=== PATIENT | female | born 1955 | race African-American/Black ===

== ENCOUNTER 2021-04-09 06:08 | Observation (INO) | payer OTHER ==
--- OUTSIDE RECORDS SUMMARY | 2021-04-09 06:11 | XMS REPORT | Continuity of Care Document ---
:1955 [facility] t Address [address] [place] [address] Care Team Providers Name Role Phone Az PATEL Attending Clinician Doctor Unassigned, Name Attending Clinician Unavailable Angelita PHELAN Attending Clinician Unavailable Jennifer Cui DO Attending Clinician Tito PATEL Attending Clinician Singer HOSKINS Attending Clinician Jason PATEL S Attending Clinician Rere Lang Attending Clinician Danna PHELAN Attending Clinician Tito PATEL Admitting Clinician Problems This patient has no known problems. Allergies, Adverse Reactions, Alerts This patient has no known allergies or adverse reactions. Medications This patient has no known medications. Procedures This patient has no known procedures. Encounters Start End Encounter Admission Attending Care Care Encounter Source Date/Time Date/Time Type Type Clinicians Facility Department ID 2021-03-16 2021-03-[address] [facility] [id number] 09:20:00 12:58:00 Ben Lynne [id number] [place] [id number] [place] [id number] 2021-03-16 2021-03-16 Orders Doctor [facility] [id number] 00:00:00 00:00:00 Only Unassigned, [place] [id number] [place] [facility] [id number] 2020-12-08 2020-12-08 Orders Doctor MAGDI [id number] 00:00:00 00:00:00 Only Unassigned, OWEN [id number] [place] [facility] [id number] [id number] 2020-11-21 2020-11-21 Transition Harvey Goldstein [id number] 00:00:00 00:00:00 of Care Janel Reynaga [id number]7.2.686 [id number] 2020-11-17 2020-11-20 [facility] Sol Cui [id number] 06:25:00 18:14:00 Encounter Latisha Francis Owen [id number]2.686 [id number] 2020-10-30 2020-10-30 Emergency [facility] [id number] 09:00:00 10:42:00 Jean Lynne [id number] [place] [id number] [place] [id number] 2020-09-08 2020-09-08 Emergency [facility] [id number] 13:46:00 15:49:00 Tita Lynne [id number] [place] [id number] [place] [id number] 2020-02-16 2020-02-17 Emergency [facility] [id number] 21:41:52 01:02:00 Tita Lynne [id number] [place] [id number] [place] [id number] 2019-12-04 2019-12-04 Emergency Lan Piña [facility] [id number] 12:46:32 14:59:00 Rere Lynne [id number] [place] [id number] [place] [id number] 2019-11-20 2019-11-20 Transition Harvey Clay [id number] 00:00:00 00:00:00 of Care Chloe Reynaga [id number] [place] 4.2.7.2.686 [id number] Results This patient has no known results.
--- NOTE | 2021-04-09 07:31 | ER ---
Nurse's Notes [facility] Name: Enrique Dallas Age: 65 yrs Sex: Female : 1955 Arrival Date: 04/09/2021 Time: 06:13 Bed 19 Private MD: Diagnosis: Abdominal pain, unspecified;Epigastric abdominal tenderness;Calculus of gallbladder and bile duct with acute and chronic cholecystitis without obstruction Presentation: 04/09 06:31 Chief complaint: Patient states: abdominal pain for 1 week, N/V/D, hx of gallstones, em denies fever. Coronavirus screen: Client denies travel out of the [place] in the last 14 days. Ebola Screen: Patient negative for fever greater than or equal to 101.5 degrees Fahrenheit, and additional compatible Ebola Virus Disease symptoms Patient denies exposure to infectious person. Patient denies travel to an Ebola-affected area in the 21 days before illness onset. No symptoms or risks identified at this time. Initial Sepsis Screen: Does the patient meet any 2 criteria? No. Patient's initial sepsis screen is negative. Does the patient have a suspected source of infection? No. Patient's initial sepsis screen is negative. Risk Assessment: Do you want to hurt yourself or someone else? Patient reports no desire to harm self or others. Onset of symptoms was April 09, 2021. 06:31 Method Of Arrival: Wheelchair em 06:31 Acuity: RICHARD 3 em Historical: - Allergies: 06:33 No Known Allergies; em - PMHx: 06:33 Hypertensive disorder; Diabetes mellitus; Asthma; Anxiety; Depressive disorder; em - PSHx: 06:33 tubal; em - Immunization history:: Adult Immunizations up to date. - Social history:: Smoking status: Patient denies any tobacco usage or history of. Screenin:15 Abuse screen: Denies threats or abuse. Denies injuries from another. Nutritional jl7 screening: No deficits noted. Tuberculosis screening: No symptoms or risk factors identified. Fall Risk IV access (20 points). Total Shafer Fall Scale indicates No Risk (0-24 pts). Assessment: 07:15 General: Appears in no apparent distress. uncomfortable, Behavior is calm, cooperative, jl7 appropriate for age. Pain: Complains of pain in right upper quadrant and left upper quadrant Pain radiates to mid back area Pain currently is 5 out of 10 on a pain scale. Pain began 2-3 days ago. Is continuous. Neuro: Level of Consciousness is awake, alert, obeys commands, Oriented to person, place, time, situation. Cardiovascular: Patient's skin is warm and dry. Respiratory: Airway is patent Respiratory effort is even, unlabored, Respiratory pattern is regular, symmetrical. GI: Abdomen is non-distended, Reports upper abdominal pain. : Denies burning with urination, pain with urination. Derm: Skin is dry, Skin is normal, Skin temperature is warm. Vital Signs: 06:31 BP 131 / 97; Pulse 78; Resp 16; Temp 97.0; Pulse Ox 100% on R/A; Weight 53.52 kg; em Height 4 ft. 11 in. (149.86 cm); Pain 5/10; 08:15 BP 114 / 86; Pulse 64; Resp 15; Pulse Ox 100% ; jl7 06:31 Body Mass Index 23.83 (53.52 kg, 149.86 cm) em ED Course: 06:13 Patient arrived in ED. es 06:33 Triage completed. em 06:33 Arm band placed on. em 07:05 Angeles Adair, TAPAN is Primary Nurse. jl7 07:10 Kevan Chandler MD is Attending Physician. kdr 07:29 Harpreet Coffman MD is Hospitalizing Provider. kdr 07:30 Initial lab(s) drawn, by pr, sent to lab. Urine collected: clean catch specimen, clear. jl7 Inserted saline lock: 22 gauge in right wrist, using aseptic technique. Blood collected. 07:54 Lipase Sent. jl7 07:54 Lipase Sent. jl7 07:54 Liver (Hepatic) Function Sent. jl7 07:54 Liver (Hepatic) Function Sent. jl7 07:54 Basic Metabolic Panel Sent. jl7 07:54 Basic Metabolic Panel Sent. jl7 07:54 CBC with Automated Diff Sent. jl7 07:54 CBC with Automated Diff Sent. jl7 08:15 Patient has correct armband on for positive identification. Placed in gown. Bed in low jl7 position. Call light in reach. Side rails up X 1. Pulse ox on. NIBP on. Warm blanket given. 09:05 No provider procedures requiring assistance completed. Patient admitted, IV remains in jl7 place. intact, No redness/swelling at site. Administered Medications: 08:10 Drug: NS 0.9% 500 ml Route: IV; Rate: bolus; Site: right wrist; 7 09:07 Follow up: IV Status: Infusion continued upon admission 7 08:16 Drug: Zofran (Ondansetron) 4 mg Route: IVP; Site: right wrist; 7 09:07 Follow up: Response: No adverse reaction 7 08:18 Drug: morphine 1 mg Route: IVP; Site: right wrist; 7 08:45 Follow up: Response: No adverse reaction; Pain is decreased [facility] Outcome: 07:29 Decision to Hospitalize by Provider. kdr 09:05 Admitted to OR accompanied by nurse, via wheelchair, with chart, Report called to jenelle Kirkpatrick RN 09:05 Condition: stable 09:05 Discharge instructions given to patient, Instructed on the need for admit, Demonstrated understanding of instructions. 09:07 Patient left the ED. [facility] Signatures: Kevan Chandler MD MD kdr Salyer, Edna es Munoz, Edgar RN RN Angeles Mathews RN RN [facility] Corrections: (The following items were deleted from the chart) 09:07 07:40 NS 0.9% 500 ml IV at bolus in right wrist [place] [id number]
--- NOTE | 2021-04-09 07:31 | EDPHYS ---
Physician Documentation [facility] Name: Enrique Dallas Age: 65 yrs Sex: Female : 1955 Arrival Date: 04/09/2021 Time: 06:13 Bed 19 Private MD: ED Physician Kevan Chandler HPI: 04/09 10:01 This 65 yrs old Black Female presents to ER via Wheelchair with complaints of Abdominal kdr Pain. 10:01 The patient presents with abdominal pain in the epigastric area, in the upper abdomen, kdr in the right upper quadrant. Onset: The symptoms/episode began/occurred last week, at an unknown time. The symptoms do not radiate. Associated signs and symptoms: Pertinent positives: nausea, Pertinent negatives: blood in stools, chest pain, constipation, diarrhea, dysuria, palpitations, shortness of breath, vaginal discharge, vomiting blood. The symptoms are described as achy, crampy, dull, intermittent. Modifying factors: The symptoms are alleviated by nothing, the symptoms are aggravated by spicy food, touching the area. Severity of pain: At its worst the pain was moderate severe just prior to arrival, in the emergency department the pain has improved moderately. The patient has not experienced similar symptoms in the past. The patient has not recently seen a physician. Historical: - Allergies: 06:33 No Known Allergies; em - PMHx: 06:33 Hypertensive disorder; Diabetes mellitus; Asthma; Anxiety; Depressive disorder; em - PSHx: 06:33 tubal; em - Immunization history:: Adult Immunizations up to date. - Social history:: Smoking status: Patient denies any tobacco usage or history of. ROS: 10:01 Constitutional: Negative for fever, chills, and weight loss, Eyes: Negative for injury, kdr pain, redness, and discharge, Neck: Negative for injury, pain, and swelling, Cardiovascular: Negative for chest pain, palpitations, and edema, Respiratory: Negative for shortness of breath, cough, wheezing, and pleuritic chest pain, Back: Negative for injury and pain, : Negative for injury, bleeding, discharge, and swelling, MS/Extremity: Negative for injury and deformity, Skin: Negative for injury, rash, and discoloration, Neuro: Negative for headache, weakness, numbness, tingling, and seizure activity. Psych: Negative for depression, anxiety, suicide ideation, homicidal ideation, and hallucinations, Allergy/Immunology: Negative for hives, rash, and allergies, Endocrine: Negative for neck swelling, polydipsia, polyuria, polyphagia, and marked weight changes, Hematologic/Lymphatic: Negative for swollen nodes, abnormal bleeding, and unusual bruising. 10:01 Abdomen/GI: Positive for abdominal pain, nausea, Negative for constipation, abdominal cramps, abdominal distension, anorexia, dysphagia, hematemesis, black/tarry stool, rectal pain, States she has not eaten since yesterday morning.. Exam: 16:26 Constitutional: This is a well developed, well nourished patient who is awake, alert, kdr and in no acute distress. Head/Face: Normocephalic, atraumatic. Eyes: Pupils equal round and reactive to light, extra-ocular motions intact. Lids and lashes normal. Conjunctiva and sclera are non-icteric and not injected. Cornea within normal limits. Periorbital areas with no swelling, redness, or edema. Neck: Trachea midline, no thyromegaly or masses palpated, and no cervical lymphadenopathy. Supple, full range of motion without nuchal rigidity, or vertebral point tenderness. No Meningismus. Chest/axilla: Normal chest wall appearance and motion. Nontender with no deformity. No lesions are appreciated. Cardiovascular: Regular rate and rhythm with a normal S1 and S2. No gallops, murmurs, or rubs. Normal PMI, no JVD. No pulse deficits. Respiratory: Lungs have equal breath sounds bilaterally, clear to auscultation and percussion. No rales, rhonchi or wheezes noted. No increased work of breathing, no retractions or nasal flaring. Back: No spinal tenderness. No costovertebral tenderness. Full range of motion. Skin: Warm, dry with normal turgor. Normal color with no rashes, no lesions, and no evidence of cellulitis. MS/ Extremity: Pulses equal, no cyanosis. Neurovascular intact. Full, normal range of motion. Neuro: Awake and alert, GCS 15, oriented to person, place, time, and situation. Cranial nerves II-XII grossly intact. Motor strength 5/5 in all extremities. Sensory grossly intact. Cerebellar exam normal. Normal gait. Psych: Awake, alert, with orientation to person, place and time. Behavior, mood, and affect are within normal limits. 16:26 Abdomen/GI: Inspection: abdomen appears normal, Bowel sounds: active, Palpation: soft, mild abdominal tenderness, in the epigastric area and right upper quadrant, mass, is not appreciated, rebound tenderness, is not appreciated. Vital Signs: 06:31 BP 131 / 97; Pulse 78; Resp 16; Temp 97.0; Pulse Ox 100% on R/A; Weight 53.52 kg; em Height 4 ft. 11 in. (149.86 cm); Pain 5/10; 08:15 BP 114 / 86; Pulse 64; Resp 15; Pulse Ox 100% ; jl7 06:31 Body Mass Index 23.83 (53.52 kg, 149.86 cm) em MDM: 07:29 Patient medically screened. kdr 16:27 Data reviewed: vital signs, nurses notes, lab test result(s), radiologic studies. kdr Counseling: I had a detailed discussion with the patient and/or guardian regarding: the historical points, exam findings, and any diagnostic results supporting the discharge/admit diagnosis, lab results, radiology results, the need for outpatient follow up. 04/09 06:25 Order name: Basic Metabolic Panel [facility] 04/09 06:25 Order name: CBC with Diff [facility] 04/09 06:25 Order name: Hepatic Function [facility] 04/09 06:25 Order name: Lipase [facility] 04/09 07:35 Order name: Basic Metabolic Panel [facility] 04/09 07:35 Order name: Basic Metabolic Panel [facility] 04/09 07:35 Order name: CBC with Automated Diff [facility] 04/09 07:35 Order name: CBC with Automated Diff [facility] 04/09 07:35 Order name: Lipase [facility] 04/09 07:35 Order name: Lipase [facility] 04/09 07:35 Order name: Liver (Hepatic) Function [facility] 04/09 07:35 Order name: Liver (Hepatic) Function [facility] 04/09 07:49 Order name: Urine Dipstick-Ancillary [facility] 04/09 07:54 Order name: Urine Microscopic Only [facility] 04/09 06:25 Order name: IV Saline Lock; Complete Time: 07:42 [facility] 04/09 06:25 Order name: Labs collected and sent; Complete Time: 07:42 [facility] 04/09 06:25 Order name: Urine Dipstick-Ancillary (obtain specimen); Complete Time: 07:42 [facility] 04/09 07:35 Order name: NPO EDMS 04/09 08:22 Order name: Urine Culture EDMS Administered Medications: 08:10 Drug: NS 0.9% 500 ml Route: IV; Rate: bolus; Site: right wrist; jl7 09:07 Follow up: IV Status: Infusion continued upon admission jl7 08:16 Drug: Zofran (Ondansetron) 4 mg Route: IVP; Site: right wrist; jl7 09:07 Follow up: Response: No adverse reaction jl7 08:18 Drug: morphine 1 mg Route: IVP; Site: right wrist; jl7 08:45 Follow up: Response: No adverse reaction; Pain is decreased jl7 Disposition Summary: 04/09/21 07:29 Hospitalization Ordered Hospitalization Status: Observation kdr Provider: Harpreet Coffman Location: Telemetry/MedSurg (observation) kdr Condition: Fair kdr Problem: an acute exacerbation kdr Symptoms: have improved kdr Bed/Room Type: Standard kdr Room Assignment: kdr Diagnosis - Abdominal pain, unspecified kdr - Epigastric abdominal tenderness kdr - Calculus of gallbladder and bile duct with acute and chronic cholecystitis without kdr obstruction Forms: - Medication Reconciliation Form kdr - SBAR form kdr Signatures: Dispatcher [employer] Kevan Gutierrez MD MD kdr Ritchie Lisa, RN RN Angeles Mathews RN RN jl7 Severino Silver MD MD nd2
[2021-04-09] MEDS ORDERED: MORPHINE 4 MG/ML SYR IV PRN ×2 (07:33→11:46)
[2021-04-09] MEDS ORDERED: ACETAMINOPHEN 500 MG TAB PO PRN (07:33)
[2021-04-09 07:47] LABS: Absolute Lymphocytes (CBC) 2.3 K/uL (0.7-4.9); Basophils % 0.7 % (0-1.3); Hematocrit 35.4 % (36.0-45.0); Lymphocytes % 30.4 % (15.3-44.8); MPV 8.6 fL (7.6-11.3); RBC Red Blood Cell Count 4.12 M/uL (3.86-4.86)
[2021-04-09 07:50] LABS: Urine Blood Negative (Negative); Urine Glucose Negative (Negative); Urine Protein 2+ (Negative); Urine pH 8.5 (5.0-7.0)
[2021-04-09] MEDS: D5 0.45 NS 500 ML IV SCH ×3 (08:00→22:13)
[2021-04-09 08:04] LABS: ALT/SGPT 21 U/L (12-78); AST/SGOT 18 U/L (15-37); Alkaline Phosphatase 64 U/L (45-117); BUN Blood Urea Nitrogen 31 mg/dL (7-18); Bicarbonate 27 mmol/L (21-32); Bilirubin Direct < 0.1 mg/dL (0-0.2); Bilirubin Total 0.3 mg/dL (0.2-1.0); Glucose Level 112 mg/dL (74-106); Lipase 150 U/L (73-393); Potassium 3.7 mmol/L (3.5-5.1); Protein, Total 9.6 g/dL (6.4-8.2); Sodium Level 139 mmol/L (136-145)
[2021-04-09] MEDS ORDERED: NA CHLORIDE 0.9% 500 ML ONE (08:13)
[2021-04-09 08:20] LABS: Urine Bacteria 20-50 /HPF (<20); Urine Mucus LIGHT /HPF (NONE SEEN); Urine RBC <5 /HPF (NONE SEEN)
[2021-04-09] MEDS ORDERED: MORPHINE 2 MG/ML SYR ONE (08:26)
[2021-04-09] MEDS ORDERED: ONDANSETRON 4 MG/2 ML VIAL ONE ×2 (08:26→11:31)
[2021-04-09] MEDS ORDERED: Ringers Lactate 1,000 ML IV ONE ×2 (09:19→12:04)
[2021-04-09] MEDS ORDERED: ROCURONIUM 50 MG/5 ML VIAL IV ONE (10:30)
[2021-04-09] MEDS ORDERED: propofoL 200 MG/20 ML VIAL IV ONE (10:30)
[2021-04-09] MEDS ORDERED: FENTANYL CITR 100 MCG/2 ML ONE (10:30)
[2021-04-09] MEDS ORDERED: LIDOCAINE 1% MPF 5 ML VIAL ONE (10:30)
[2021-04-09] MEDS ORDERED: MIDAZOLAM HCL 2 MG/2 ML INJ ONE (10:30)
[2021-04-09] MEDS ORDERED: CEFOXITIN/SWI 1gm 1 GM/10 ML SYR ONE (10:41)
[2021-04-09] MEDS ORDERED: NS 0.9% VIAL 10 ML ONE (11:10)
[2021-04-09] MEDS ORDERED: EPHEDRINE SULF 50 MG/ML VIAL ONE (11:10)
[2021-04-09] MEDS ORDERED: dexAMETHasone 10 MG/ML VIAL ONE (11:25)
[2021-04-09] MEDS ORDERED: KETOROLAC 30 MG/ML INJ ONE (11:26)
[2021-04-09] MEDS ORDERED: GLYCOPYRROLATE 0.2 MG/ML SYR ONE ×3 (11:36→11:46)
[2021-04-09] MEDS ORDERED: NEOSTIGMINE 1 MG/ML -5 ML ONE (11:36)
--- NOTE | 2021-04-09 11:36 | P.HP ---
Date of Service: 04/09/21 PC: This 65-year-old female presents emergency room with severe right upper quadrant abdominal pain for diagnosis and treatment. HPC: Patient actually seen me last week my office. She has been complaining of right upper quadrant abdominal pain, radiating to her back, for the last couple of years. Pain is gradually intensified. She has been having biliary colic with it. PMH: States is otherwise healthy female PSHx: Prior tubal SOC: No known allergies does not smoke SYS REVIEW: No cough, wheeze, shortness of breath. No chest pain or palpitations. Denies any urinary complaints. Says her only digestive problem is that she cannot eat. This is because she gets nauseous and has pain shortly afterwards. O/E awake alert vital signs are stable HEENT: Nonicteric Chest: Air entry equal bilaterally ABD: Mild right upper quadrant tenderness LOCO: Intact DATA: Cholecystitis IMPRESSION: Acute on chronic cholecystitis with cholelithiasis, biliary colic PLAN: This patient, who was well known to mean, was hoping to have an elective laparoscopic cholecystectomy with cholangiogram. We had discussed the procedure in his serosa my office. She however had severe pain, necessitating a visit to the emergency room. I will take her the operating room for laparoscopic cholecystectomy with a cholangiogram. The risks once again were outlined. The possibility of bleeding, infection, injury to bile ducts blood vessels intestines were described. The possible need for an open and/or further surgeries and procedures was discussed. She understands and wants us to proceed.
--- NOTE | 2021-04-09 11:37 | RAD REPORT ---
EXAM DESCRIPTION: RADCholangiogram Oper-Xray Or04/09/2021 11:27 am CLINICAL HISTORY: Abdominal pain FINDINGS: The examination was performed by Dr. Coffman. The cystic duct was cannulated and contrast administered. Contrast flowed into the duodenum. Round filling defect within the mid common bile duct has more of t he appearance of an air bubble than stone The fluoroscopy time 0.1 minute. Three fluoroscopic spot images obtained
--- NOTE | 2021-04-09 11:43 | P.OP ---
Preoperative diagnosis: Acute on chronic cholecystitis with cholelithiasis Postoperative diagnosis: The same Primary procedure: Laparoscopic cholecystectomy Secondary procedure: Cholangiogram Anesthesia: General Estimated blood loss: Less than 10 cc Specimen: 1 gallbladder and contents Operative Technique: The patient was brought to the operating room and placed supine on the table. After the induction of adequate general endotracheal anesthesia, the area of the abdomen was prepped with a DuraPrep solution, and draped in the usual aseptic manner. A subumbilical incision was made. This brought down through the skin and subcutaneous tissue. The Visiport was used to enter the peritoneal cavity and created pneumoperitoneum to approximately 12 mm of mercury. Under direct vision a 5 mm trocar was placed in the upper midline, and 2 other 5 mm trocars on the right lateral side. The patient was then placed in reverse Trendelenburg and rolled towards the recovery operator's side. We could see a distended and chronically inflamed gallbladder. A grasper was placed on the fundus of the gallbladder. Another 1 was placed down by Alexandra's pouch. Applying lateral traction we were able to dissect and expose the cystic duct and artery. The artery was dealt with 1st. It was clipped and divided in the usual manner. A clip was then placed between the gallbladder and the cystic duct. An opening was made into the cystic duct. We attempted then to pass the cholangiocath into the cystic duct. It went in for right easily. After having been held in place by the small balloon, a cholangiogram was obtained. This demonstrated good flow contrast into the duodenum, no filling defects were noted. The upper radicals were suboptimally visualized. Clips were now placed on the distal portion of the cystic duct. The cystic duct was then divided. The gallbladder was now dissected free from the liver bed, placed into an Endo-Catch, and brought out through the umbilical trocar site. The gallbladder fossa was inspected to ensure adequate hemostasis. It was irrigated with a saline solution and the irrigant aspirated from the peritoneal cavity. 0.25% Marcaine was aerosolized into the right upper quadrant and the gallbladder fossa. The umbilical trocar site was now approximated with an Endo Close and an absorbable sutures. The pneumoperitoneum was then collapsed, the suture tied, and belinda applied to the skin. A further 0.25% Marcaine was injected around are incision sites. At the end of the procedure the patient was in a stable condition when sent to the recovery room. Needle sponge instrument count were correct. 1 specimen was sent for histopathology. Complications: None Transferred to: Recovery Room Condition: Good
[2021-04-09] MEDS ORDERED: ONDANSETRON 4 MG/2 ML VIAL IV PRN (11:46)
[2021-04-09] MEDS: HYDROMORPHONE HCL 1 MG/ML INJ ONE ×2 (13:00→13:06)
[2021-04-09] MEDS: HYDROCODONE/APAP 7.5/325 MG TAB PO PRN ×2 (15:10→22:16)
[2021-04-09 17:42] VITALS: BMI 23.8
[2021-04-09] MEDS ORDERED: PNEUMOCOCCAL VACCINE 0.5 ML IMVAC ONE (19:00)
[2021-04-10 04:41] LABS: Absolute Lymphocytes (CBC) 1.2 K/uL (0.7-4.9); Basophils % 0.1 % (0-1.3); Lymphocytes % 9.7 % (15.3-44.8); MPV 8.9 fL (7.6-11.3); RBC Red Blood Cell Count 3.26 M/uL (3.86-4.86)
[2021-04-10 05:04] LABS: ALT/SGPT 28 U/L (12-78); AST/SGOT 26 U/L (15-37); Albumin 2.9 g/dL (3.4-5.0); Alkaline Phosphatase 50 U/L (45-117); BUN Blood Urea Nitrogen 33 mg/dL (7-18); Bicarbonate 26 mmol/L (21-32); Bilirubin Direct < 0.1 mg/dL (0-0.2); Bilirubin Total 0.2 mg/dL (0.2-1.0); Glucose Level 229 mg/dL (74-106); Lipase 88 U/L (73-393); Potassium 4.7 mmol/L (3.5-5.1); Protein, Total 7.3 g/dL (6.4-8.2); Sodium Level 133 mmol/L (136-145)
[2021-04-10] MEDS: HYDROCODONE/APAP 7.5/325 MG TAB PO PRN (05:08)
[2021-04-10] MEDS: D5 0.45 NS 500 ML IV SCH ×2 (05:08→10:22)
[2021-04-10 08:13] VITALS: O2SAT 97
[2021-04-10 09:37] VITALS: BP 111/58; TEMP 98.6
== END 2021-04-10 11:51 | disposition home or self-care (01) ==
LOC: ER 06:08 → OR 09:16 → 2ND 14:24
PROVIDERS: ADMIT Surgery; ATTEND Surgery
PROC: BF00YZZ Plain Radiography of Bile Ducts using Other Contrast (ICD-10-PCS; 2021-04-09)
PROC: 0FT44ZZ Resection of Gallbladder, Percutaneous Endoscopic Approach (ICD-10-PCS; principal; 2021-04-09 09:15)
DX: K80.12 Calculus of gallbladder with acute and chronic cholecystitis without obstruction (principal); E11.9 Type 2 diabetes mellitus without complications; I10 Essential (primary) hypertension; J45.909 Unspecified asthma, uncomplicated; F41.9 Anxiety disorder, unspecified; F32.9 Major depressive disorder, single episode, unspecified; Z98.51 Tubal ligation status
CPT/HCPCS: 96361; 87088; 85025 ×2; 87086; 80048 ×2; 36415; 82947 ×4; 80076 ×2; 88304; 83690 ×2; 74300; 90471; 90732; 94010; 96375; 96374; 99285; 47563; J2704; J2250; J3010; J1100; J2270; J1170; J2710; G0378 ×4; J7799 ×3; J7120 ×2; J7040; J2405 ×3; 81003; 81015